=== PATIENT | female | born 1965 | race African-American/Black ===

== ENCOUNTER 2016-11-20 08:22 | Emergency (ER) | payer SELFPAY ==
--- NOTE | 2016-11-20 09:09 | ER Document Report ---
ED Extremity Problem, Upper - General Chief Complaint: Arm Pain Stated Complaint: LEFT ARM PAIN Time Seen by Provider: 11/20/16 08:59 Mode of Arrival: Ambulatory Information source: Patient Notes: 51-year-old female presents to ED for left elbow pain on Sunday and has continually gotten worse. She states she had the same thing happen about 6 years ago and she was supposed to follow-up with orthopedic but did not follow- up. TRAVEL OUTSIDE OF THE [place] IN LAST 30 DAYS: No - HPI Patient complains to provider of: Pain, Elbow Onset: Other - Sunday Recent injury: No Quality of pain: Achy, Cramping, Throbbing Pain Level: 3 Context: Other - no injury Associated symptoms: None Exacerbated by: Movement Relieved by: Rest Similar symptoms previously: Yes Recently seen / treated by doctor: No - Related Data Allergies/Adverse Reactions: aspirin [Aspirin] Allergy (Verified 11/20/16 08:25) ibuprofen [From Motrin] Allergy (Verified 11/20/16 08:25) Past Medical History - General Information source: Patient - Social History Smoking Status: Current Every Day Smoker Cigarette use (# per day): Yes - /3 ppd Chew tobacco use (# tins/day): No Smoking Education Provided: Yes Frequency of alcohol use: None Drug Abuse: None Lives with: Family Family History: Arthritis, CAD, CVA, DM, Malignancy Patient has suicidal ideation: No Patient has homicidal ideation: No - Past Medical History Cardiac Medical History: Reports: Hx Hypertension Denies: Hx Coronary Artery Disease Pulmonary Medical History: Reports: Hx Asthma EENT Medical History: Reports: None Neurological Medical History: Reports: None Endocrine Medical History: Reports: None Renal/ Medical History: Reports: None Malignancy Medical History: Reports: None GI Medical History: Reports: Hx Gastroesophageal Reflux Disease, Hx Colonoscopy , Hx Endoscopy Musculoskeltal Medical History: Reports Hx Musculoskeletal Trauma Skin Medical History: Reports None Psychiatric Medical History: Reports: None Traumatic Medical History: Reports: Hx Fractures - right arm Infectious Medical History: Reports: None Past Surgical History: Reports: Hx Dilation and Curettage, Hx Hysterectomy - Immunizations Immunizations up to date: Yes Hx Diphtheria, Pertussis, Tetanus Vaccination: Yes Review of Systems - Review of Systems Constitutional: No symptoms reported EENT: No symptoms reported Cardiovascular: No symptoms reported Respiratory: No symptoms reported Gastrointestinal: No symptoms reported Genitourinary: No symptoms reported Female Genitourinary: No symptoms reported Musculoskeletal: No symptoms reported Skin: No symptoms reported Hematologic/Lymphatic: No symptoms reported Neurological/Psychological: No symptoms reported -: Yes All other systems reviewed and negative Physical Exam - Vital signs Vitals: Temp Pulse Resp BP Pulse Ox 97.9 F 88 20 178/113 H 98 11/20/16 08:27 11/20/16 08:27 11/20/16 08:27 11/20/16 08:27 11/20/16 08:27 Interpretation: Normal - General General appearance: Appears well, Alert - HEENT Head: Normocephalic, Atraumatic Eyes: Normal Pupils: PERRL - Respiratory Respiratory status: No respiratory distress Chest status: Nontender Breath sounds: Normal Chest palpation: Normal - Cardiovascular Rhythm: Regular Heart sounds: Normal auscultation Murmur: No - Abdominal Inspection: Normal Distension: No distension Bowel sounds: Normal Tenderness: Nontender Organomegaly: No organomegaly - Back Back: Normal, Nontender - Extremities General upper extremity: Normal inspection, Normal color, Normal temperature General lower extremity: Normal inspection, Nontender, Normal color, Normal ROM , Normal temperature, Normal weight bearing. No: Delisa's sign Elbow: Tender, Limited ROM - due to pain can move but painful - Neurological Neuro grossly intact: Yes Cognition: Normal Orientation: AAOx4 Mercer Coma Scale Eye Opening: Spontaneous Ari Coma Scale Verbal: Oriented Ari Coma Scale Motor: Obeys Commands Ari Coma Scale Total: 15 Speech: Normal Motor strength normal: LUE, RUE, LLE, RLE Sensory: Normal - Psychological Associated symptoms: Normal affect, Normal mood - Skin Skin Temperature: Warm Skin Moisture: Dry Skin Color: Normal Course - Re-evaluation Re-evalutation: 11/20/16 10:41 Patient given a dispense pack of [place] and instructed to please follow-up with orthopedics for right elbow pain. She was also instructed to follow[facility] with [facility] for [facility] elevated blood pressure. - Vital Signs Vital signs: Temp Pulse Resp BP Pulse Ox 97.9 F 88 20 178/113 H 98 11/20/16 08:27 11/20/16 08:27 11/20/16 08:27 11/20/16 08:27 11/20/16 08:27 - Diagnostic Test Radiology reviewed: Image reviewed, Reports reviewed Discharge - Discharge Clinical Impression: Left elbow pain Condition: Stable Disposition: HOME, SELF-CARE Additional Instructions: You were seen today for left elbow pain since Sunday. He states he had a similar incident 6 years ago and did not follow up with the orthopedic. Please follow-up with the orthopedic so they can determine the cause of his pain. I will treat you with a [place] dispense back which will be 6 pills she could take 1 every 6 hours as needed for pain. Use heat. Please be sure to move her elbow do not hold still. Elevation & Warmth The area should be elevated as much as possible over the next 48 hours. Try to keep it above the level of your heart. Apply gentle heat (such as a heating pad or hot water bottle) for about 20 to 30 minutes about every two hours -- at least four times daily. Warmth and elevation will help you make a more rapid recovery, and will ease the pain considerably. Oral Narcotic Medication You have been given a pack of [place] for pain control. This medication is a narcotic. It's best taken with food, as nausea can result if taken on an empty stomach. Don't operate machinery or drive within six hours of taking this medication. Do not combine this medicine with alcohol, or with any medication which can cause sedation (such as cold tablets or sleeping pills) unless you get permission from the physician. Narcotics tend to cause constipation. If possible, drink plenty of fluids and eat a diet high in fiber and fruits. FOLLOW-UP CARE: If you have been referred to a physician for follow-up care, call the physician s office for an appointment as you were instructed or within the next two days. If you experience worsening or a significant change in your symptoms, notify the physician immediately or return to the Emergency Department at any time for re-evaluation. Forms: Smoking Cessation Education, Elevated Blood Pressure Referrals: EDUARDA AGUILERA DO [ACTIVE STAFF] - Follow up as needed [facility] [Provider Group] - Follow up as needed
--- NOTE | 2016-11-20 09:56 | RADIOLOGY REPORT (SQ) ---
EXAM DESCRIPTION: ELBOW LEFT OVER 2 VIEWS COMPLETED DATE/TIME: 11/20/2016 9:39 am REASON FOR STUDY: pain decreased rom COMPARISON: None. NUMBER OF VIEWS: Four views. TECHNIQUE: AP, lateral, and both oblique radiographic images acquired of the left elbow. LIMITATIONS: None. FINDINGS: MINERALIZATION: Normal. BONES: No acute fracture or dislocation. No worrisome bone lesions. JOINT: No effusion. SOFT TISSUES: No soft tissue swelling. No foreign body. OTHER: No other significant finding. IMPRESSION: NEGATIVE STUDY OF THE LEFT ELBOW. NO RADIOGRAPHIC EVIDENCE OF ACUTE INJURY. TECHNICAL DOCUMENTATION: JOB ID: [id number] [employer]- All Rights Reserved
[2016-11-20] MEDS ORDERED: HYDROCODONE/ACETAMINOPHEN 5-325 MG 6 TAB/DSPK PO PRN (10:29)
[2016-11-20 10:41] VITALS: BP 148/95
== END 2016-11-20 10:52 | disposition home or self-care (01) ==
LOC: ER 08:22
DX: M25.522 Pain in left elbow (principal); I10 Essential (primary) hypertension; J45.909 Unspecified asthma, uncomplicated; F17.210 Nicotine dependence, cigarettes, uncomplicated; Z71.6 Tobacco abuse counseling; Z88.6 Allergy status to analgesic agent
CPT/HCPCS: 99283

== ENCOUNTER 2016-12-23 04:15 | Emergency (ER) | payer SELFPAY ==
[2016-12-23 04:30] VITALS: BP 153/114
--- NOTE | 2016-12-23 04:47 | ER Document Report ---
ED General - General Chief Complaint: Finger Injury Stated Complaint: CAP STUCK ON FINGER Time Seen by Provider: 12/23/16 04:35 Notes: Patient is a 51-year-old female presents with complaint of pain over the left fifth finger. Patient says that she had a bug bite in her finger. She tried to dependent alcohol. There is a hole in the That she did her finger through and then the Got stuck on the base of her finger. She has been unable to remove the finger. She is tried applying chicken grease to the finger. She still is unable to slide it off and therefore came to the ER. No other complaints at this time. TRAVEL OUTSIDE OF THE [place] IN LAST 30 DAYS: No - Related Data Allergies/Adverse Reactions: aspirin [Aspirin] Allergy (Verified 11/20/16 08:25) ibuprofen [From Motrin] Allergy (Verified 11/20/16 08:25) Past Medical History - Social History Smoking Status: Never Smoker Frequency of alcohol use: None Drug Abuse: None Family History: Arthritis, CAD, CVA, DM, Malignancy Patient has suicidal ideation: No Patient has homicidal ideation: No - Past Medical History Cardiac Medical History: Reports: Hx Hypertension Denies: Hx Coronary Artery Disease Pulmonary Medical History: Reports: Hx Asthma Endocrine Medical History: Denies: Hx Diabetes Mellitus Type 1, Hx Diabetes Mellitus Type 2 Renal/ Medical History: Denies: Hx Peritoneal Dialysis GI Medical History: Reports: Hx Gastroesophageal Reflux Disease, Hx Colonoscopy , Hx Endoscopy Musculoskeltal Medical History: Reports Hx Musculoskeletal Trauma Traumatic Medical History: Reports: Hx Fractures - right arm Past Surgical History: Reports: Hx Dilation and Curettage, Hx Gynecologic Surgery - multi D n Cs, Hx Hysterectomy - Immunizations Immunizations up to date: Yes Hx Diphtheria, Pertussis, Tetanus Vaccination: Yes Review of Systems - Review of Systems Notes: My Normal Review Basic REVIEW OF SYSTEMS: CONSTITUTIONAL : Denies fever, chills, or sweats. Denies recent illness. MUSCULOSKELETAL: Denies neck or back pain or joint pain or swelling. SKIN: Denies rash or skin lesions. NEUROLOGICAL: Denies sensory or motor loss. ALL OTHER SYSTEMS REVIEWED AND NEGATIVE. Physical Exam - Vital signs Vitals: Temp Pulse Resp BP Pulse Ox 97.5 F 77 18 153/114 H 98 12/23/16 04:26 12/23/16 04:26 12/23/16 04:26 12/23/16 04:12/23/16 04:26 - Notes Notes: General Appearance: Well nourished, alert, cooperative, no acute distress, mild obvious discomfort. Vitals: reviewed, See vital signs table. Extremities: strength 5/5 in all extremities, good pulses in all extremities, patient has a plastic cap that is stuck on the base of the left fifth digit. She still is good capillary refill. Does not appear to be any restriction to blood flow. She is good distal sensation., no edema. Skin: warm, dry, appropriate color, no rash Neuro: speech clear, oriented x 3, normal affect, responds appropriately to questions. Course - Re-evaluation Re-evalutation: 12/23/16 04:47 I was able to cut through the Using trauma barak. This caused a Crack and then I was able to break apart and remove it off the patient's finger. There is no complications. Patient has good capillary refill and good distal sensation as well as good flexion-extension of the finger after the Is removed. Patient will be discharged home. Patient encouraged to return to ER if she develops any redness or swelling of the finger. Dictation of this chart was performed using voice recognition software; therefore, there may be some unintended grammatical errors. - Vital Signs Vital signs: Temp Pulse Resp BP Pulse Ox 97.5 F 77 18 153/114 H 98 12/23/16 04:26 12/23/16 04:26 12/23/16 04:26 12/23/16 04:12/23/16 04:26 Discharge - Discharge Clinical Impression: Plastic ring stuck on finger Condition: Good Disposition: HOME, SELF-CARE Additional Instructions: Please return to the ER if you develop any redness or swelling to your finger.
== END 2016-12-23 05:00 | disposition home or self-care (01) ==
LOC: ER 04:15
DX: S60.447A External constriction of left little finger, initial encounter (principal); W49.04XA Ring or other jewelry causing external constriction, initial encounter; I10 Essential (primary) hypertension; J45.909 Unspecified asthma, uncomplicated; Z88.6 Allergy status to analgesic agent
CPT/HCPCS: 99283

== ENCOUNTER 2017-07-31 12:06 | Observation (INO) | payer SELFPAY ==
--- NOTE | 2017-07-31 13:02 | ER Document Report ---
ED Medical Screen (RME) - General Chief Complaint: High Blood Pressure Stated Complaint: BLOOD PRESSURE PROBLEM Time Seen by Provider: 07/31/17 12:50 Mode of Arrival: Ambulatory Information source: Patient Notes: Patient is a 52-year-old female presenting to the emergency department complaining of high blood pressure with associated symptoms of chest discomfort , general malaise and fatigue. Patient states that she has been feeling "not right" and "not like myself" the last couple of days and decided to take her blood pressure this morning when she started having some chest discomfort. Patient states that her blood pressure this morning was 194/135 when it normally runs 120/80. Patient states that she did take her blood pressure medication of Benicar this morning. TRAVEL OUTSIDE OF THE [place] IN LAST 30 DAYS: No - Related Data Allergies/Adverse Reactions: aspirin [Aspirin] Allergy (Verified 07/31/17 12:15) ibuprofen [From Motrin] Allergy (Verified 07/31/17 12:15) Past Medical History - General Information source: Patient - Social History Chew tobacco use (# tins/day): No Frequency of alcohol use: None Drug Abuse: None Family history: Reviewed & Not Pertinent Pulmonary Medical History: Reports: Hx Asthma GI Medical History: Reports: Hx Gastroesophageal Reflux Disease, Hx Colonoscopy , Hx Endoscopy Musculoskeltal Medical History: Reports Hx Musculoskeletal Trauma Traumatic Medical History: Reports: Hx Fractures - right arm Past Surgical History: Reports: Hx Dilation and Curettage, Hx Gynecologic Surgery - multi D n Cs, Hx Hysterectomy - Immunizations Immunizations up to date: Yes Hx Diphtheria, Pertussis, Tetanus Vaccination: Yes Physical Exam - Vital signs Vitals: Temp Pulse Resp BP Pulse Ox 98.7 F 85 16 187/110 H 96 07/31/17 12:43 07/31/17 12:43 07/31/17 12:43 07/31/17 12:43 07/31/17 12:43 - Notes Notes: GENERAL: Alert, interacts well. No acute distress. HEAD: Normocephalic, Atraumatic. NECK: Full range of motion. Supple. Trachea midline. LUNGS: Clear to auscultation bilaterally, no wheezes, rales, or rhonchi. No respiratory distress. HEART: Regular rate and rhythm. No murmurs, gallops, or rubs. EXTREMITIES: Moves all four extremites spontaneously. Course - Vital Signs Vital signs: Temp Pulse Resp BP Pulse Ox 98.7 F 85 16 187/110 H 96 07/31/17 12:43 07/31/17 12:43 07/31/17 12:43 07/31/17 12:43 07/31/17 12:43 - Laboratory Result Diagrams: 07/31/17 13:20 07/31/17 13:20 Laboratory results interpreted by me: 07/31/17 13:20 RDW 14.5 H Scribe Documentation - Scribe Written by Stevenson:: Stevenson Bourne, 07/31/2017 13:02 acting as scribe for :: Darius
[2017-07-31 13:34] LABS: ABSOLUTE LYMPHOCYTES (AUTO) 1.6 10^3/uL (0.5-4.7); ABSOLUTE MONOCYTES (AUTO) 0.4 10^3/uL (0.1-1.4); ABSOLUTE NEUT (AUTO) 2.7 10^3/uL (1.7-8.2); BASOPHILS % (AUTO) 0.7 % (0-2); EOSINOPHILS % (AUTO) 0.9 % (0-6); HEMATOCRIT 40.9 % (36.0-47.0); HEMOGLOBIN 14.4 g/dL (12.0-15.5); LYMPHOCYTES % (AUTO) 34.3 % (13-45); MEAN CORPUSCULAR HGB CONC 35.3 g/dL (32.0-36.0); MEAN CORPUSCULAR VOLUME 93 fl (80-97); MONOCYTES % (AUTO) 7.5 % (3-13); PLATELET COUNT 262 10^3/uL (150-450); RED BLOOD COUNT 4.38 10^6/uL (3.72-5.28); RED CELL DISTRIBUTION WIDTH 14.5 % (11.5-14.0); SEGMENTED NEUTROPHILS % (AUTO) 56.6 % (42-78); TOTAL CELLS COUNTED % (AUTO) 100 %; WHITE BLOOD COUNT 4.8 10^3/uL (4.0-10.5)
--- NOTE | 2017-07-31 13:37 | RADIOLOGY REPORT (SQ) ---
EXAM DESCRIPTION: CHEST SINGLE VIEW COMPLETED DATE/TIME: 07/31/2017 1:29 pm REASON FOR STUDY: Chest tightness COMPARISON: 08/26/2009 EXAM PARAMETERS: NUMBER OF VIEWS: One view. TECHNIQUE: Single frontal radiographic view of the chest acquired. RADIATION DOSE: NA LIMITATIONS: None. FINDINGS: LUNGS AND PLEURA: No opacities, masses or pneumothorax. No pleural effusion. MEDIASTINUM AND HILAR STRUCTURES: No masses. Contour normal. HEART AND VASCULAR STRUCTURES: Heart normal in size. Normal vasculature. BONES: No acute findings. HARDWARE: None in the chest. OTHER: No other significant finding. IMPRESSION: NO ACUTE RADIOGRAPHIC FINDING IN THE CHEST. TECHNICAL DOCUMENTATION: JOB ID: [id number] [employer]- All Rights Reserved
[2017-07-31 13:52] LABS: ALANINE AMINOTRANSFERASE 15 U/L (9-52); ALBUMIN 4.7 g/dL (3.5-5.0); ALKALINE PHOSPHATASE 56 U/L (38-126); ANION GAP 12 (5-19); ASPARTATE AMINO TRANSFERASE 15 U/L (14-36); BILIRUBIN,DIRECT 0.4 mg/dL (0.0-0.4); BILIRUBIN,TOTAL 0.4 mg/dL (0.2-1.3); BLOOD UREA NITROGEN 8 mg/dL (7-20); CALCIUM 9.8 mg/dL (8.4-10.2); CARBON DIOXIDE 25 mmol/L (22-30); CHLORIDE 106 mmol/L (98-107); GLUCOSE 90 mg/dL (75-110); POTASSIUM 3.8 mmol/L (3.6-5.0); SODIUM 143.4 mmol/L (137-145); TOTAL PROTEIN 8.1 g/dL (6.3-8.2)
[2017-07-31] MEDS ORDERED: NITROGLYCERIN 2% OINTMENT 1 GM PACKET TP ONE (15:13)
--- NOTE | 2017-07-31 15:46 | ER Document Report ---
ED General - General Chief Complaint: High Blood Pressure Stated Complaint: BLOOD PRESSURE PROBLEM Time Seen by Provider: 07/31/17 12:50 Mode of Arrival: Ambulatory Notes: 52-year-old lady with hypertension on amlodipine presents with chest tightness" for lengthening basket adequate in her chest for 2 days in the context of feeling terrible. She had a blood pressure check today and it was in the 194 systolic range. No shortness of breath nausea or vomiting. Distant stress test greater than 10 years ago. Claims med compliance. TRAVEL OUTSIDE OF THE [place] IN LAST 30 DAYS: No - Related Data Allergies/Adverse Reactions: aspirin [Aspirin] Allergy (Verified 07/31/17 12:15) ibuprofen [From Motrin] Allergy (Verified 07/31/17 12:15) Past Medical History - General Information source: Patient - Social History Smoking Status: Current Every Day Smoker Chew tobacco use (# tins/day): No Frequency of alcohol use: None Drug Abuse: None Family History: Arthritis, CAD, CVA, DM, Malignancy Patient has suicidal ideation: No Patient has homicidal ideation: No - Past Medical History Cardiac Medical History: Reports: Hx Hypertension Denies: Hx Coronary Artery Disease Pulmonary Medical History: Reports: Hx Asthma Endocrine Medical History: Denies: Hx Diabetes Mellitus Type 1, Hx Diabetes Mellitus Type 2 Renal/ Medical History: Denies: Hx Peritoneal Dialysis GI Medical History: Reports: Hx Gastroesophageal Reflux Disease, Hx Colonoscopy , Hx Endoscopy Musculoskeltal Medical History: Reports Hx Musculoskeletal Trauma Traumatic Medical History: Reports: Hx Fractures - right arm Past Surgical History: Reports: Hx Dilation and Curettage, Hx Gynecologic Surgery - multi D n Cs, Hx Hysterectomy - Immunizations Immunizations up to date: Yes Hx Diphtheria, Pertussis, Tetanus Vaccination: Yes Review of Systems - Review of Systems Notes: REVIEW OF SYSTEMS GEN: Denies fever, chills, weight loss ENT: Denies sore throat, nasal discharge, ear pain EYES: Denies blurry vision, eye pain, discharge CV: Pressure RESP: Denies cough, shortness of breath, wheezing GI: Denies abdominal pain, nausea, vomiting, diarrhea MSK: Denies joint pain/swelling, edema, SKIN: Denies rash, skin lesions LYMPH: Denies swollen glands/lymph nodes NEURO: Denies headache, focal weakness or numbness, dizziness PSYCH: Denies depression, suicidal or homicidal ideation PHYSICAL EXAMINATION General: No acute distress, well-nourished Head: Atraumatic, normocephalic ENT: Mouth normal, oropharynx moist, no exudates or tonsillar enlargement Eyes: Conjunctiva normal, pupils equal, lids normal Neck: No JVD, supple, no guarding CVS: Normal rate, regular rhythm, no murmurs Resp: No resp distress, equal and normal breath sounds bilaterally GI: Nondistended, soft, no tenderness to palpation, no rebound or guarding Ext: No deformities, no edema, normal range of motion in upper and lower ext Back: No CVA or midline TTP Skin: No rash, warm Lymphatic: No lymphadeopathy noted Neuro: Awake, alert. Face symmetric. GCS 15. Physical Exam - Vital signs Vitals: Temp Pulse Resp BP Pulse Ox 98.7 F 85 16 187/110 H 96 07/31/17 12:43 07/31/17 12:43 07/31/17 12:43 07/31/17 12:43 07/31/17 12:43 Course - Re-evaluation Re-evalutation: 07/31/17 15:33 Patient presents with acute hypertension and chest pain for 2 days in the setting of a changed EKG. She looks well but is significantly hypertensive and needs it to be lowered as I believe she is having some demand ischemia. Her first troponin is negative. She has a severe aspirin allergy. We will give Nitropaste to reduce blood pressure. Will repeat EKG and troponin Spoke with Dr. Haley hospitalist to accept the patient 07/31/17 16:21 Reassessed after Nitropaste. Her pressure is 210 and she is quite angry about being admitted but I did explain her why this is necessary. Nursing was unable to obtain an IV. We will get another nurse to try. Ordered hydralazine 10 mg' s. 07/31/17 17:29 Reassessed. Blood pressure has decreased. Repeat troponin pending. Hospitalist is caring for the patient at this point. - Vital Signs Vital signs: Temp Pulse Resp BP Pulse Ox 98.7 F 85 27 H 199/107 H 97 07/31/17 12:43 07/31/17 12:43 07/31/17 16:43 07/31/17 16:43 07/31/17 16:43 - Laboratory Result Diagrams: 07/31/17 13:20 07/31/17 13:20 Laboratory results interpreted by me: 07/31/17 13:20 RDW 14.5 H - EKG Interpretation by Me EKG shows normal: Sinus rhythm Rate: Normal Rhythm: NSR When compared to previous EKG there are: Changes noted - Upright T waves now in the lateral precordium where they were inverted prior Critical Care Note - Critical Care Note Total time excluding time spent on procedures (mins): 31 Comments: The above patient is critically ill. Not including procedures, but including direct re-evaluations, speaking with patient and/or consultants, interpreting results, and documenting, I spent the total amount of minute listed listed above on critical care time Discharge - Discharge Clinical Impression: Hypertensive emergency Condition: Fair Disposition: ADMITTED OBSERVATION Admitting Provider: Hospitalist Unit Admitted: Telemetry
[2017-07-31] MEDS ORDERED: HYDRALAZINE HCL INJ/PF 20 MG/1 ML SDV IV ONE (16:20)
[2017-07-31] MEDS ORDERED: LABETALOL HCL INJ 20 MG/4 ML DISP.SYRIN IV PRN (17:24)
--- NOTE | 2017-07-31 17:28 | PDOC H&P ---
History of Present Illness Admission Date/PCP: 07/31/17 15:53 GAVINO CHRISTENSEN DO Patient complains of: chest tightness, lethargy History of Present Illness: LISA CARPENTER is a 52 year old female with history of HTN on Norvasc, chronic hip pain, and pernicious anemia, who presents to ED with poorly controlled BP. Patient states that until 9 months ago, she had not seen a PCP for "many years" . She was started on norvasc at that time with improvement in her BPs. States that around 1 month ago she had a upper respiratory infection, however has been feeling well otherwise. Over the past 2-3 days, she has had generalized lethargy , headache, and sensation of "floating". She admits to occasional chest tightness but not overt chest pain, diaphoresis, or palpitations. No sick contacts. Denies fevers, chills, abdominal pain, NVD. Has been compliant with home medications. Denies recent stress. She does admit to smoking and has strong family history of both CAD and hypertension. She had a stress test >5 years ago. Unclear of results. Admitted to hospitalist service for further management. Past Medical History Cardiac Medical History: Reports: Hypertension Denies: Coronary Artery Disease Pulmonary Medical History: Reports: Chronic Obstructive Pulmonary Disease (COPD) Endocrine Medical History: Denies: Diabetes Mellitus Type 1, Diabetes Mellitus Type 2 GI Medical History: Reports: Gastroesophageal Reflux Disease Past Surgical History Past Surgical History: Reports: Hysterectomy Social History Information Source: Patient Smoking Status: Current Every Day Smoker Frequency of Alcohol Use: None Hx Recreational Drug Use: No Hx Prescription Drug Abuse: No Family History Family History: Arthritis, CAD, CVA, DM, Malignancy Parental Family History Reviewed: Yes - Father with HTN, CAD; mother with HTN Children Family History Reviewed: Yes - 14 year old healthy daughter Sibling(s) Family History Reviewed.: Yes - History of HTN Medication/Allergy Allergies/Adverse Reactions: aspirin [Aspirin] Allergy (Verified 07/31/17 12:15) ibuprofen [From Motrin] Allergy (Verified 07/31/17 12:15) Review of Systems All systems: reviewed and no additional remarkable complaints except as stated Physical Exam Vital Signs: Temp Pulse Resp BP Pulse Ox 98.7 F 85 27 H 199/107 H 97 07/31/17 12:43 07/31/17 12:43 07/31/17 16:43 02/20/18 16:43 07/31/17 16:43 General appearance: PRESENT: no acute distress, obese, well-developed, well- nourished Head exam: PRESENT: normocephalic Eye exam: PRESENT: EOMI, PERRLA Mouth exam: PRESENT: moist Neck exam: PRESENT: full ROM. ABSENT: JVD Respiratory exam: PRESENT: prolonged expiratory phas, symmetrical, unlabored Cardiovascular exam: PRESENT: RRR, +S1, +S2. ABSENT: systolic murmur GI/Abdominal exam: PRESENT: soft. ABSENT: distended, tenderness Musculoskeletal exam: PRESENT: full ROM Neurological exam: PRESENT: alert, awake, oriented to person, oriented to place , oriented to time, oriented to situation, CN II-XII grossly intact Psychiatric exam: PRESENT: normal mood Skin exam: PRESENT: dry, warm Results Laboratory Results: Labs- All tests 24 hr 07/31/17 07/31/17 07/31/17 13:20 13:20 13:20 WBC 4.8 RBC 4.38 Hgb 14.4 Hct 40.9 MCV 93 MCH 33.0 MCHC 35.3 RDW 14.5 H Plt Count 262 Seg Neutrophils % 56.6 Lymphocytes % 34.3 Monocytes % 7.5 Eosinophils % 0.9 Basophils % 0.7 Absolute Neutrophils 2.7 Absolute Lymphocytes 1.6 Absolute Monocytes 0.4 Absolute Eosinophils 0.0 Absolute Basophils 0.0 Sodium 143.4 Potassium 3.8 Chloride 106 Carbon Dioxide 25 Anion Gap 12 BUN 8 Creatinine 0.90 Est GFR ( Amer) > 60 Est GFR (Non-Af Amer) > 60 Glucose 90 Calcium 9.8 Magnesium 2.0 Total Bilirubin 0.4 Direct Bilirubin 0.4 Neonat Total Bilirubin Not Reportable Neonat Direct Bilirubin Not Reportable Neonat Indirect Bili Not Reportable AST 15 ALT 15 Alkaline Phosphatase 56 Troponin I < 0.012 Total Protein 8.1 Albumin 4.7 EKG Comments: Reviewed Impressions: Chest X-Ray 07/31/17 12:51 IMPRESSION: NO ACUTE RADIOGRAPHIC FINDING IN THE CHEST. Assessment & Plan - Diagnosis (1) Hypertensive urgency Is this a current diagnosis for this admission?: Yes Plan: On Norvasc at home, Now with SBP >190s sustained. No clear precipitating factor. Patient is , current smoker, obese, and has a strong family of HTN and CAD - Labs unremarkable, EKG with new lateral t-wave inversions - Has received Nitro patch and Hydralazine 10mg IV in ED with only marginal improvement - Will repeat trop and EKG - Ordered Labetolol 20mg IV q4 hours PRN - Pharmacologic stress test ordered for AM - Cardiology consulted, appreciate recommendations - Once BP's improve, will transition to oral regimen, Continue with IV better control - Continue monitoring on tele, repeat AM labs (2) Family history of heart disease Is this a current diagnosis for this admission?: Yes Plan: Strong family history of CAD and HTN in family - Will obtain HgA1c and lipid profile in AM to better risk stratify - Remainder of work up per above (3) Chronic pain Qualifiers: Chronic pain type: other chronic pain Qualified Code(s): G89.29 - Other chronic pain Is this a current diagnosis for this admission?: Yes Plan: Continue home Percocet - Time Time Spent: 30 to 50 Minutes Anticipated discharge: Home Within: within 24 hours
[2017-07-31] MEDS ORDERED: ENALAPRILAT DIHYDRATE INJ/PF 2.5 MG/2 ML SDV IV PRN (17:31)
[2017-07-31] MEDS ORDERED: ENOXAPARIN SODIUM INJ 40 MG/0.4 ML DISP.SYRIN SUBCUT ONE (18:00)
[2017-07-31] MEDS: OXYCODONE-ACETAMINOPHEN 5-325 MG TABLET PO PRN (18:41)
--- NOTE | 2017-07-31 18:46 | EKG REPORT ---
SEVERITY:- BORDERLINE ECG - SINUS RHYTHM PROBABLE LEFT ATRIAL ABNORMALITY NONSPECIFIC ST-T CHANGES- INFERIOR LEADS : Confirmed by: Benjamin Hauser MD 31-Jul-2017 18:45:29
--- NOTE | 2017-07-31 19:45 | PDOC CONSULTATION ---
Consultation Consult Date: 07/31/17 Attending physician:: MARTIN DOLAN Consult reason:: Hypertensive urgency History of Present Illness Admission Date/PCP: 07/31/17 15:53 GAVINO CHRISTENSEN DO Patient complains of: Fatigue and tiredness History of Present Illness: LISA CARPENTER is a 52 year old female with history of HTN on Norvasc, chronic hip pain, and pernicious anemia, who presents to ED with poorly controlled BP. Patient states that until 9 months ago, she had not seen a PCP for "many years" . She was started on norvasc at that time with improvement in her BPs. States that around 1 month ago she had a upper respiratory infection, however has been feeling well otherwise. Over the past 2-3 days, she has had generalized lethargy , headache, and sensation of "floating". She admits to occasional chest tightness but not overt chest pain, diaphoresis, or palpitations. No sick contacts. Denies fevers, chills, abdominal pain, NVD. Has been compliant with home medications. Denies recent stress. She does admit to smoking and has strong family history of both CAD and hypertension. She had a stress test >5 years ago. Unclear of results. Admitted to hospitalist service for further management. Patient is a vague historian. This history was reviewed and confirmed. Patient did complain of feeling very fatigued and tired. She has also noted shortness of breath on mild exertion. She is not able to exert much. Past Medical History Cardiac Medical History: Reports: Hypertension Denies: Coronary Artery Disease Pulmonary Medical History: Reports: Asthma, Chronic Obstructive Pulmonary Disease (COPD) Endocrine Medical History: Denies: Diabetes Mellitus Type 1, Diabetes Mellitus Type 2 GI Medical History: Reports: Gastroesophageal Reflux Disease Past Surgical History Past Surgical History: Reports: Hysterectomy Social History Information Source: Patient Smoking Status: Current Every Day Smoker Frequency of Alcohol Use: Occasional Hx Recreational Drug Use: No Hx Prescription Drug Abuse: No - Advance Directive Resuscitation Status: Full Code Surrogate healthcare decision maker:: Patient's mother is the surrogate decision-maker Family History Family History: Arthritis, CAD, CVA, DM, Malignancy Parental Family History Reviewed: Yes Children Family History Reviewed: Yes Sibling(s) Family History Reviewed.: Yes Medication/Allergy Home Medications: Albuterol Sulfate [Proair HFA] 1 - 2 puff IH Q4 PRN #1 inhaler 08/02/17 Amlodipine Besylate [Norvasc 5 mg Tablet] 5 mg PO DAILY #30 tablet 08/02/17 Aspirin [Aspirin 81 mg Chewable Tablet] 81 mg PO DAILY #30 tab.chew 08/02/17 Atorvastatin Calcium [Lipitor 10 mg Tablet] 10 mg PO QHS #30 tablet 08/02/17 Losartan Potassium [Cozaar] 100 mg PO DAILY #30 tablet 08/02/17 Metoprolol Succinate [Toprol Xl 25 mg Tab.sr] 25 mg PO DAILY #30 tab.sr.24h Allergies/Adverse Reactions: aspirin [Aspirin] Allergy (Verified 07/31/17 12:15) ibuprofen [From Motrin] Allergy (Verified 07/31/17 12:15) Review of Systems Review of Systems: Please see history of present illness and past medical history as wall. Constitutional: No fever or chills reported. Fatigue and tiredness reported. Head : No recent chronic headaches, recent head injury. Eyes: No recent eye pain, diplopia, redness, discharge, acute visual changes. Ears: No recent chronic ear pain, acute hearing loss, ear discharge. Oral cavity: No recent ulcerations, bleeding, oral cavity discomfort. Neck: No recent acute neck pain reported. Hematologic: No recent easy bruising or bleeding or hematologic malignancy reported. Lymphatic: No recent lymphatic malignancy, chronic lymphadenopathy reported yet Cardiovascular system review: See history of present illness. No history of sustained palpitations, syncope or near syncope Respiratory system review: No recent chronic cough, hemoptysis, blood clots in the lungs reported. shortness of breath on exertion Gastrointestinal system review: Negative for any recent acute or chronic abdominal pain, hematemesis, melena, recent change in bowel habits. Genitourinary system review: No recent acute or chronic hematuria, flank pain, UTI etc. reported. Skin system review: Negative for any recent abnormal bruising, no rash, no pruritus reported. Neurologic: No prior history of strokes, mini strokes, seizure disorder. Psychologic: No history of major psychosis or major depression reported. Musculoskeletal: Minor aches and pains reported. No acute joint swelling reported. Endocrine: No recent polyuria, polydipsia, recent heat or cold intolerance. Physical Exam Vital Signs: Temp Pulse Resp BP Pulse Ox 98.7 F 85 13 156/102 H 97 07/31/17 12:43 07/31/17 12:43 07/31/17 19:06 07/31/17 19:06 07/31/17 19:06 Exam: GENERAL: well-nourished and in no acute distress. Alert and oriented x3 HEAD: Atraumatic, normocephalic. EYES: Pupils equal round and reactive to light, extraocular movements intact, sclera anicteric, conjunctiva are normal. ENT: TMs normal, nares patent, oropharynx clear without exudates. Moist mucous membranes. No oral ulcerations or bleeding gums noted NECK: supple without lymphadenopathy. Trachea is central. No cervical or axillary lymphadenopathy noted. Carotids are 2+, JVD WNL LUNGS: Respiration seems nonlabored, no significant accessory muscle action noted. Breath sounds clear to auscultation bilaterally and equal noted. No wheezes rales or rhonchi noted. No significant dullness noted on percussion. CHEST: Palpation of the chest wall shows no significant chest wall tenderness. No other significant abnormalities noted. HEART: [place] LAYER, No PSH, 1/6 AARON aortic area, 1/6 reyes systolic murmur mitral area, no rubs, no gallops. ABDOMEN: Soft, no significant tenderness appreciated, normoactive bowel sounds. No guarding, no rebound. No rigidity noted . No masses appreciated. EXTREMITIES: Pedal pulses are 1-2+, no calf tenderness noted. No clubbing or cyanosis.trace to 1+ pedal edema noted NEUROLOGICAL: Focused neurological exam showed no significant neurologic deficit. Normal speech, no focal weakness appreciated. PSYCH: Normal mood, normal affect. Judgment and insight within normal limits. SKIN: No significant ecchymosis, rash, ulcerations or signs of pruritus noted. MUSCULOSKELETAL EXAM: No significant joint swelling noted. Results Laboratory Results: 07/31/17 17:23 Troponin I < 0.012 EKG Comments: Sinus rhythm with minor nonspecific ST-T changes noted Impressions: Chest X-Ray 07/31/17 12:51 IMPRESSION: NO ACUTE RADIOGRAPHIC FINDING IN THE CHEST. Assessment & Plan - Diagnosis (1) Chest tightness Is this a current diagnosis for this admission?: Yes (2) Hypertensive urgency Is this a current diagnosis for this admission?: Yes (3) Obesity Qualifiers: Obesity type: unspecified obesity type Serious obesity comorbidity presence : unspecified whether serious comorbidity present Body mass index: unspecified BMI Is this a current diagnosis for this admission?: Yes - Notes Notes: Chest pain: Patient has some typical and atypical features of chest pain. Cardiac enzymes so far has been negative. Electrocardiogram did not show any definitive ST segment changes. Multiple differential diagnoses exist in this patient. In descending order of probability this includes underlying coronary artery disease, gastroesophageal reflux, musculoskeletal pain, referred pain from elsewhere, anxiety panic disorder etc.Patient has significant cardiac risk factors, which indicates that there is a intermediate probability of chest discomfort coming from underlying CAD. Feel that it would need to be evaluated further. Discussed evaluation to assess this. In this regard risk benefits of nuclear stress test and other alternative processes were discussed in detail. The patient prefers to undergo nuclear stress test. The small risk of radiation , myocardial infarction, , cardiac arrhythmias, respiratory distress etc. were discussed. Patient understood the risks and gave informed consent. Nuclear stress test was therefore scheduled. For risk evaluation, patient is also being scheduled for a 2-D echocardiogram. Patient questions were answered. Hypertension: Blood pressure goal in this patient is 140/90 or less. This was discussed with the patient. Currently blood pressure under reasonable control. Better medication for this patient are ANDERSON inhibitor/ARB/beta giselle etc. discussed side effects of uncontrolled hypertension and also severe hypotension. Obesity: Discussed adverse effect of overweight/obesity on cardiovascular event rate, sleep apnea, diabetes and hypertension et cetera. Patient has been recommended weight loss. Patient advised in weight loss. In this regard portion control, substitution, calorie restriction and regular exercise plan discussed. Patient informed that I would be happy to help for outpatient management of weight loss. Risk associated with being overweight and obesity discussed. This included both mechanical and metabolic complications. - Time Time Spent: 30 to 50 Minutes - CODE STATUS was discussed, patient remains full code. Surrogate decision-maker unchanged. Multiple medical problems were addressed. More than 50% of the time spent coordinating care, discussing management plans with involved caregivers. Management plans discussed with involved personnels. Medical decision making was of moderate to high complexity , patient's has multiple comorbidities. Medications reviewed and adjusted accordingly: Yes
[2017-08-01] MEDS: OXYCODONE-ACETAMINOPHEN 5-325 MG TABLET PO PRN ×2 (01:39→09:51)
[2017-08-01 07:21] LABS: HEMATOCRIT 39.9 % (36.0-47.0); HEMOGLOBIN 13.8 g/dL (12.0-15.5); MEAN CORPUSCULAR HEMOGLOBIN 32.3 pg (27.0-33.4); MEAN CORPUSCULAR HGB CONC 34.6 g/dL (32.0-36.0); MEAN CORPUSCULAR VOLUME 94 fl (80-97); PLATELET COUNT 230 10^3/uL (150-450); RED BLOOD COUNT 4.27 10^6/uL (3.72-5.28); RED CELL DISTRIBUTION WIDTH 14.8 % (11.5-14.0); WHITE BLOOD COUNT 4.4 10^3/uL (4.0-10.5)
[2017-08-01 07:33] LABS: ANION GAP 13 (5-19); BLOOD UREA NITROGEN 10 mg/dL (7-20); CALCIUM 9.7 mg/dL (8.4-10.2); CARBON DIOXIDE 22 mmol/L (22-30); CHLORIDE 108 mmol/L (98-107); CHOLESTEROL 199.47 mg/dL (0-200); GLUCOSE 84 mg/dL (75-110); POTASSIUM 3.7 mmol/L (3.6-5.0); SODIUM 143.4 mmol/L (137-145); TRIGLYCERIDES 117 mg/dL (<150)
[2017-08-01 08:10] LABS: DIRECT LDL 118 mg/dL (<100)
[2017-08-01] MEDS ORDERED: LOSARTAN POTASSIUM 25 MG TABLET PO ONE (09:00)
[2017-08-01] MEDS ORDERED: AMLODIPINE BESYLATE 5 MG TABLET PO ONE (09:00)
[2017-08-01] MEDS: ENOXAPARIN SODIUM INJ 40 MG/0.4 ML DISP.SYRIN SUBCUT SCH (09:50)
[2017-08-01] MEDS ORDERED: ATORVASTATIN CALCIUM 20 MG TABLET PO SCH (10:15)
[2017-08-01] MEDS ORDERED: ATORVASTATIN CALCIUM 10 MG TABLET PO ONE (11:30)
--- NOTE | 2017-08-01 13:01 | DRAGON STRESS TEST REPORT ---
INTRAVENOUS LEXISCAN CARDIOLITE STRESS TEST USING SINGLE PHOTON EMMISION COMPUTERIZED TOMOGRAPHIC. DATE OF PROCEDURE: August 01, 2017, INDICATION : Chest pain CARDIAC RISK FACTORS: Hypertension RESTING EKG: Sinus rhythm without any baseline ST-T wave changes STRESS EKG: No significant changes noted with LexiScan bolus REASON FOR TERMINATION: Protocol. PROCEDURE REPORT: Baseline heart rate 68 beats per minute with blood pressure of 137/88. Patient had no significant complaints. Heart rate at 2 minutes post bolus 94 with a blood pressure of 142/83. 3 minutes post bolus heart rate 70 with blood pressure of 128/83. No significant EKG changes were noted. Patient had no significant complaints during the procedure or postprocedure. Patient injected with Aminophyllin 75 mg at 3 minutes or later after Lexiscan bolus. CONCLUSIONS: Normal EKG and hemodynamic response to IV LexiScan. NUCLEAR DATA: At rest the patient was given 14.70 millicuries of technetium 99 sestamibi injected intravenously. As per protocol rest gated SPECT images were obtained. On day of stress test, the patient was given intravenous LexiScan at a dose of 0.4 mg in 5 mL intravenously, followed by flush with normal saline. Subsequently the stress dose of 44.3 millicuries of technetium 99 sestamibi was injected intravenously. As per protocol stress gated images were obtained. NUCLEAR INTERPRETATION: Both raw and processed data were used for interpretation. Visual, qualitative, computer-generated quantitative data was used. There was good myocardial uptake of technetium compound. Motion artifact and soft tissue attenuations were noted. Increased visceral uptake was noted. No definitive areas of transient perfusion defect noted, No definitive areas of fixed perfusion defect or scars noted. EKG gated imaging showed LV EF at 61 %, rest and stress gated EF similar visually. T. I D. ratio was 1.05. Lung heart ratio noted to be within normal limits 0.28. No significant extracardiac and abnormal radiotracer activities were noted. RV free wall uptake was noted to be WNL. IMPRESSION: Also refer to comments under nuclear interpretation. Also test results needs to be interpreted in the context of pretest probability. 1. No definitive areas of transient perfusion defect noted. 2. There is no definitive scintigraphic evidence of myocardial infarction/scar. 3. EKG gated imaging shows left ventricular ejection fraction of approx. 61 %. 4. Clinical correlation requested as occasionally single vessel disease or balanced ischemia could be missed. In approximately 10% of the cases Lexiscan may not cause adequate vasodilatory stress. RECOMMENDATIONS: Aggressive risk factor modification and medical management. Further evaluation may be needed if continued symptoms or other high risk indicators are noted on clinical evaluation. Close cardiology follow-up is also recommended. Clinical correlation with echocardiogram derived ejection fraction. Inability to exercise by itself can lead to increased cardiovascular event risks. Consider cardiology consultation and or follow-up if clinically indicated. I am available for cardiology evaluation and consultation if requested by the assembler leather goods, unless patient already has a telecom coordinator. DEE
[2017-08-01] MEDS ORDERED: REGADENOSON INJ 0.4 MG/5 ML DISP.SYRIN IV ONE (14:25)
[2017-08-01] MEDS ORDERED: AMINOPHYLLINE INJ/PF 250 MG/10 ML SDV IV ONE (14:25)
--- NOTE | 2017-08-01 14:33 | PDOC PROGRESS REPORT ---
Subjective Progress Note for:: 08/01/17 Subjective:: The patient is a 52-year-old female with past medical history of hypertension, chronic hip pain, pernicious anemia, who was admitted on 07/31/17 for hypertensive urgency. The patient is seen on morning rounds. She is found sitting upright to the minor having just returned to her room after her Cardiolite stress test. She states that she did not has pain during the stress test. Her only complaint at this time is a posterior headache that has been ongoing for 3 days described as dull and throbbing. No red flags. She states that typically she takes Tylenol for her pain. She is offered Tylenol or Motrin which she declines at this time. She is hopeful for good test results and a quick discharge to home possibly this afternoon. No other questions or concerns at this time. Reason For Visit: HYPERTENSIVE URGENCY Physical Exam Vital Signs: Temp Pulse Resp BP Pulse Ox 98.5 F 70 20 157/100 H 100 08/01/17 08:29 08/01/17 08:29 08/01/17 08:29 08/01/17 08:29 08/01/17 08:29 Intake & Output 07/31/17 08/01/17 08/02/17 06:59 06:59 06:59 Weight 98.5 kg General appearance: PRESENT: no acute distress, cooperative, obese, well- developed, well-nourished Head exam: PRESENT: atraumatic, normocephalic Eye exam: PRESENT: conjunctiva pink, EOMI, PERRLA. ABSENT: scleral icterus Ear exam: PRESENT: normal external ear exam Mouth exam: PRESENT: moist, tongue midline Neck exam: ABSENT: carotid bruit, JVD, lymphadenopathy, thyromegaly Respiratory exam: PRESENT: clear to auscultation geri, symmetrical, unlabored. ABSENT: rales, rhonchi, wheezes Cardiovascular exam: PRESENT: RRR, +S1, +S2. ABSENT: diastolic murmur, rubs, systolic murmur Pulses: PRESENT: normal dorsalis pedis pul Vascular exam: PRESENT: normal capillary refill GI/Abdominal exam: PRESENT: normal bowel sounds, soft. ABSENT: distended, guarding, mass, organolmegaly, rebound, tenderness Rectal exam: PRESENT: deferred Extremities exam: PRESENT: full ROM. ABSENT: calf tenderness, clubbing, pedal edema Neurological exam: PRESENT: alert, awake, oriented to person, oriented to place , oriented to time, oriented to situation, CN II-XII grossly intact. ABSENT: motor sensory deficit Psychiatric exam: PRESENT: appropriate affect, normal mood. ABSENT: homicidal ideation, suicidal ideation Skin exam: PRESENT: dry, intact, warm. ABSENT: cyanosis, rash Results Laboratory Results: 08/01/17 06:05 08/01/17 06:05 08/01/17 08/01/17 06:05 06:05 WBC 4.4 RBC 4.27 Hgb 13.8 Hct 39.9 MCV 94 MCH 32.3 MCHC 34.6 RDW 14.8 H Plt Count 230 Sodium 143.4 Potassium 3.7 Chloride 108 H Carbon Dioxide 22 Anion Gap 13 BUN 10 Creatinine 0.89 Est GFR ( Amer) > 60 Est GFR (Non-Af Amer) > 60 Glucose 84 Calcium 9.7 Triglycerides 117 Cholesterol 199.47 LDL Cholesterol Direct 118 H VLDL Cholesterol 23.0 HDL Cholesterol 58 07/31/17 17:23 Troponin I < 0.012 Impressions: Chest X-Ray 07/31/17 12:51 IMPRESSION: NO ACUTE RADIOGRAPHIC FINDING IN THE CHEST. Assessment & Plan - Diagnosis (1) Hypertensive urgency Is this a current diagnosis for this admission?: Yes Plan: The patient was admitted with hypertensive urgency; blood pressures on admission were 201/1 2 1. They are slightly improved today to 157/100. Labs and EKGs are unremarkable. Have asked nursing to obtain manual blood pressures only. Cardiac diet. Cardiology has been consulted; appreciate their evaluation recommendations. The patient is ordered Vasotec 2.5 mg IV every 4 hours as needed Have resumed her home dose Norvasc milligrams daily today. Have also initiated losartan 25 mg p.o. daily per cardiology cheese recommendations for an ANDERSON/ARB. If blood pressure remains significantly elevated; consider renal ultrasound. (2) Chest tightness Is this a current diagnosis for this admission?: Yes Plan: Resolved. The patient denies continued chest tightness. Troponins are negative. EKGs without abnormal findings; no ST segment elevation or depression. Nuclear stress test was completed today demonstrated a normal EKG and hemodynamic response to Lexiscan. Echocardiogram is pending. Radiology has been consulted; appreciate their evaluation recommendations. (3) Chronic pain Qualifiers: Chronic pain type: other chronic pain Qualified Code(s): G89.29 - Other chronic pain Is this a current diagnosis for this admission?: Yes Plan: Today the patient's home Percocet regimen. Encourage mobility. (4) Family history of heart disease Is this a current diagnosis for this admission?: Yes Plan: Strong family history of coronary artery disease and hypertension. Hemoglobin A1c is 5.2% LDL 118, HDL 58, triglycerides 117, total cholesterol 199. The patient is started on low-dose atorvastatin daily aspirin. (5) Obesity Qualifiers: Obesity type: unspecified obesity type Serious obesity comorbidity presence : unspecified whether serious comorbidity present Body mass index: unspecified BMI Is this a current diagnosis for this admission?: Yes Plan: We will ask the registered dietitian to meet with the patient. - Time Time Spent with patient: 25-34 minutes Medications reviewed and adjusted accordingly: Yes Anticipated discharge: Home
[2017-08-01] MEDS ORDERED: ATORVASTATIN CALCIUM 10 MG TABLET PO SCH (22:00)
[2017-08-02 04:04] VITALS: BP 118/80
[2017-08-02 08:33] LABS: ANION GAP 14 (5-19); BLOOD UREA NITROGEN 11 mg/dL (7-20); CALCIUM 9.8 mg/dL (8.4-10.2); CARBON DIOXIDE 21 mmol/L (22-30); CHLORIDE 108 mmol/L (98-107); GLUCOSE 88 mg/dL (75-110); POTASSIUM 4.1 mmol/L (3.6-5.0); SODIUM 143.2 mmol/L (137-145)
--- NOTE | 2017-08-02 09:20 | Physician Advisory Note ---
Physician Advisor ProgressNote .: [facility], I have reviewed the medical record for this patient. Physician Advisor Statement: Please consider documenting, if you agree: 1. "chest tightness, suspect most likely due to " (cardiac ischemia? HTN? gastritis? ...) - If this was felt to be due to the HTN, then please consider specifying "HTN -minnie emergency causing chest tightness" ("HTN-minnie urgency" doesn't cause s/s; "HTN-minnie emergency" does) Thanks! CK
[2017-08-02] MEDS ORDERED: METOPROLOL SUCCINATE 25 MG TAB.SR.24H PO SCH (10:00)
[2017-08-02] MEDS ORDERED: AMLODIPINE BESYLATE 5 MG TABLET PO SCH (10:00)
[2017-08-02] MEDS ORDERED: LOSARTAN POTASSIUM 25 MG TABLET PO SCH (10:00)
[2017-08-02] MEDS ORDERED: LOSARTAN POTASSIUM 50 MG TABLET PO SCH (10:00)
[2017-08-02] MEDS ORDERED: OMEGA-3 ACID ETHYL ESTERS 1 GM CAPSULE PO SCH (10:00)
[2017-08-02] MEDS ORDERED: ASPIRIN 81 MG TABLET, CHEWABLE PO SCH (10:00)
[2017-08-02] MEDS: OXYCODONE-ACETAMINOPHEN 5-325 MG TABLET PO PRN (10:38)
[2017-08-02] MEDS: ENOXAPARIN SODIUM INJ 40 MG/0.4 ML DISP.SYRIN SUBCUT SCH (10:42)
--- NOTE | 2017-08-02 12:19 | XCELERA REPORT ---
[address] [address] Transthoracic Echocardiogram Report Name: LISA CARPENTER Age: 52 yrs Gender: Female : 1965 Patient Status: Inpatient Patient Location: [address] [place] [address] Study Date: 08/02/2017 11:22 AM Height: 62 in Weight: 217 lb BSA: 2.0 m2 Procedure: A complete two-dimensional transthoracic echocardiogram was performed (2D, M-mode, spectral and color flow Doppler). The study was technically adequate with some images being suboptimal in quality. Reason For Study: Hypertensive urgency Ordering Physician: ELIE MOSLEY Performed By: More Lew Interpretation Summary The left ventricular ejection fraction is normal. There is mild concentric left ventricular hypertrophy. Doppler measurements suggest pseudonormalized left ventricular relaxation, which is associated with grade II/IV or mild to moderate diastolic dysfunction The left ventricle is grossly normal size. No regional wall motion abnormalities noted. The right atrium is normal in size The left atrium is mildly dilated. The right ventricular systolic function is normal. There is a trace amount of mitral regurgitation There is no mitral valve stenosis. No aortic regurgitation is present. There is no aortic valve stenosis There is a trace or physiologic amount of tricuspid regurgitation Tricuspid regurgitation jet envelope not well defined to measure RV systolic pressure accurately. The aortic root is not well visualized but is probably normal size. The inferior vena cava appeared normal and decreased > 50% with respiration (RAP 5-10 mmHg) There is no pericardial effusion. MMode/2D Measurements & Calculations RVDd: 2.3 cm LVIDd: 4.9 cmFS: 29.2 % Ao root diam: 2.8 cm IVSd: 1.0 cm LVIDs: 3.4 cmEDV(Teich): 111.2 ml LVPWd: 1.0 cmESV(Teich): 49.0 ml Ao root area: 6.0 cm2 EF(Teich): 55.9 % LA dimension: 3.4 cm LVOT diam: 2.0 cm LVOT area: 3.2 cm2 Doppler Measurements & Calculations MV E max taylor: MV P1/2t max taylor: Ao V2 max: LV V1 max P.2 cm/sec 71.0 cm/sec 149.3 cm/sec 4.5 mmHg MV A max taylor: MV P1/2t: 68.9 msec Ao max PG: LV V1 max: 67.9 cm/sec MVA(P1/2t): 3.2 cm2 8.9 mmHg 106.1 cm/sec MV E/A: 1.0 MV dec slope: ADRIENNE(V,D): 2.3 cm2 301.6 cm/sec2 PA V2 max: TR max taylor: 74.0 cm/sec 175.5 cm/sec PA max PG: TR max P.3 mmHg 2.2 mmHg Left Ventricle The left ventricle is grossly normal size. There is mild concentric left ventricular hypertrophy. The left ventricular ejection fraction is normal. Doppler measurements suggest pseudonormalized left ventricular relaxation, which is associated with grade II/IV or mild to moderate diastolic dysfunction. No regional wall motion abnormalities noted. Right Ventricle The right ventricle is grossly normal size. There is normal right ventricular wall thickness. The right ventricular systolic function is normal. Atria The right atrium is normal in size. The left atrium is mildly dilated. Interarterial septum not well visualized and not well dopplered. Cannot comment on ASD/PFO presence. Mitral Valve The mitral valve is grossly normal. There is no mitral valve stenosis. There is a trace amount of mitral regurgitation. Aortic Valve The aortic valve is grossly normal. There is no aortic valve stenosis. No aortic regurgitation is present. Tricuspid Valve The tricuspid valve is not well visualized, but is grossly normal. There is no tricuspid stenosis. There is a trace or physiologic amount of tricuspid regurgitation. Tricuspid regurgitation jet envelope not well defined to measure RV systolic pressure accurately. Pulmonic Valve The pulmonic valve is not well visualized. Great Vessels The aortic root is not well visualized but is probably normal size. The inferior vena cava appeared normal and decreased > 50% with respiration (RAP 5-10 mmHg). Effusions There is no pericardial effusion. : ELIE MOSLEY > Elie Mosley
--- NOTE | 2017-08-02 13:38 | DISCHARGE SUMMARY E ---
Discharge Summary NAME: LISA CARPENTER : 1965 AGE: 52Y ADMITTED: 07/31/2017 DISCHARGED: 08/02/2017 CODE STATUS: FULL CODE. PRIMARY CARE PROVIDER: Dr. Abbott CONDITION: Good. DISCHARGE DIAGNOSES: 1. Hypertensive urgency. 2. Chest pain most likely secondary to #1 which is resolved. 3. Chronic pain. 4. Hyperlipidemia. 5. Chronic obstructive pulmonary disease. DISCHARGE MEDICATIONS: 1. ProAir HFA 1-2 puffs inhalation q.4 hours p.r.n., 1 inhaler with 0 refills. 2. Norvasc 5 mg p.o. daily, 30 tablets with 0 refills. 3. Aspirin 81 mg p.o. daily, 30 tablets with 1 refill. 4. Lipitor 10 mg p.o. at hour of sleep, 30 tablets with 1 refill. 5. Cozaar 100 mg p.o. daily, 30 tablets with 1 refill. 6. Toprol XL 25 mg p.o. daily, 30 tablets with 1 refill. DIET: Heart healthy. ACTIVITY: As tolerated. DIAGNOSTICS: Lab values are as follow: Hematology obtained on 08/01/2017: WBCs are 4.4, hemoglobin is 13.8, hematocrit is 39.9, platelet count is 230,000. Chemistry obtained on 08/02/2017: Sodium is 143, potassium 4.1, chloride is 108, carbon dioxide 21, BUN 11, creatinine is 0.84, glucose 88, A1c is 5.2, calcium is 9.8, magnesium is 2.0, bilirubin 0.4, AST 15, ALT is 15, alk phos 56, troponin is 0.012, total protein 8.1, albumin 4.7. Triglycerides are 117, cholesterol 199, LDL 118, VLDL is 23, HDL is 58. Chest x-ray obtained on 07/31/2017 reveals no acute radiographic finding of the chest. Cardiolite stress test obtained on 07/31/2017 reveals a normal EKG and hemodynamic response to Lexiscan stress test. EKG obtained on 07/31/2017 reveals sinus rhythm. PHYSICAL EXAMINATION: GENERAL: On examination, the patient is a well-developed, well-nourished, 52-year-old -[place] female who is awake and alert. She is oriented to person, place, time, and situation. She is verbal, conversational, and does not appear to be in any acute distress. VITAL SIGNS: Temperature 98.6, pulse 63, respirations 16, blood pressure 118/80, oxygen saturation is 98% on room air. SKIN: Warm and dry. No rash. She is not diaphoretic. HEENT: Pupils are reactive. There is no evidence of JVP. Mucous membranes are moist. CARDIOVASCULAR: Heart is in sinus rhythm and regular. CHEST: Symmetrical and unlabored. ABDOMEN: Nondistended. EXTREMITIES: No edema. PSYCHIATRIC: Appropriate affect. Pleasant mood. HISTORY OF PRESENT ILLNESS: The patient is a 52-year-old -[place] female with a past medical history of hypertension. The patient presented to the emergency department with a chief complaint of chest tightness and lethargy. According to the patient, she had poorly controlled blood pressure for the past 9 months. The patient has not seen her primary care provider for quite awhile. The patient was started on Norvasc last time she saw her primary and had improvement of her blood pressure. The patient, however, states that over the past 2-3 days she has had a generalized lethargy, headache, and the patient has not filled her medicines since November. The patient gives a description of a floating sensation as well occasional chest tightness but no overt pain, diaphoresis, palpitations, no sick contacts, no fever, chills, or abdominal. The patient denies any recent stress. She does admit to smoking and a strong family history of coronary artery disease and hypertension, and the patient was referred to the hospitalist for observation and management. HOSPITAL COURSE: Patient was observed in continuous telemetry unit. Serial cardiac enzymes were obtained, all of which were non-suggestive. The patient had no EKG changes and no evidence on the derrick engineer. The patient underwent a Lexiscan stress test which was found to be normal. The patient's blood pressure medications were resumed that she would have been on at home. Additionally, Losartan was added with significant improvement of her symptoms. The patient's headache completely resolved, and the patient is eager for discharge. DISCHARGE PLANNING: The patient is advised to follow with her primary care provider within 1-2 weeks for hospital followup. Follow-up for outpatient echocardiogram. Time spent on this followup including assessment, plan, physical examination, patient education, review of records, and specialty collaboration is 25 minutes. DICTATING PHYSICIAN: KANDACE PEREZ NP [id number] PHY#: [id number] ID: [id number] JOB#: [id number] ACCT: [id number] cc:Broderick PEREZ NP > MTDD
--- NOTE | 2017-08-02 20:09 | PDOC PROGRESS REPORT ---
Subjective Progress Note for:: 08/01/17 Subjective:: Patient seems to be doing better with gradual improvement. Pt is denying any chest arm or neck discomfort. Patient denying any PND, orthopnea. Patient denied any sustained palpitations, dizziness, syncope, near syncope. Patient denying any fever chills. Patient denying any other significant discomfort. Patient is maintaining sinus rhythm. Nuclear stress test procedure was explained to the patient in detail. Risks benefits were discussed and informed consent was obtained. Alternatives were discussed. Patient informed that based on risk factors, physical exam, lab data findings and symptoms there is at least intermediate probability of underlying CAD. Nuclear stress test procedure was therefore scheduled. Review of systems: Rest review of systems negative. Medications: Medications have been reviewed. Reason For Visit: HYPERTENSIVE URGENCY Physical Exam Vital Signs: Temp Pulse Resp BP Pulse Ox 98.3 F 79 20 138/86 H 93 08/01/17 15:43 08/01/17 19:00 08/01/17 15:43 08/01/17 16:00 08/01/17 15:43 Intake & Output 07/31/17 08/01/17 08/02/17 06:59 06:59 06:59 Intake Total 460 Balance 460 Weight 98.5 kg Exam: GENERAL: well-nourished and in no acute distress. Alert and oriented x3 HEAD: Atraumatic, normocephalic. EYES: Pupils equal round and reactive to light, extraocular movements intact, sclera anicteric, conjunctiva are normal. ENT: TMs normal, nares patent, oropharynx clear without exudates. Moist mucous membranes. No oral ulcerations or bleeding gums noted NECK: supple without lymphadenopathy. Trachea is central. No cervical or axillary lymphadenopathy noted. Carotids are 2+, JVD WNL LUNGS: Respiration seems nonlabored, no significant accessory muscle action noted. Breath sounds clear to auscultation bilaterally and equal noted. No wheezes rales or rhonchi noted. No significant dullness noted on percussion. CHEST: Palpation of the chest wall shows no significant chest wall tenderness. No other significant abnormalities noted. 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 ABDOMEN: Soft, no significant tenderness appreciated, normoactive bowel sounds. No guarding, no rebound. No rigidity noted . No masses appreciated. EXTREMITIES: Pedal pulses are 1-2+, no calf tenderness noted. No clubbing or cyanosis.trace to 1+ pedal edema noted NEUROLOGICAL: Focused neurological exam showed no significant neurologic deficit. Normal speech, no focal weakness appreciated. PSYCH: Normal mood, normal affect. Judgment and insight within normal limits. SKIN: No significant ecchymosis, rash, ulcerations or signs of pruritus noted. MUSCULOSKELETAL EXAM: No significant joint swelling noted. Results Laboratory Results: 08/01/17 06:05 08/01/17 06:05 08/01/17 08/01/17 06:05 06:05 WBC 4.4 RBC 4.27 Hgb 13.8 Hct 39.9 MCV 94 MCH 32.3 MCHC 34.6 RDW 14.8 H Plt Count 230 Sodium 143.4 Potassium 3.7 Chloride 108 H Carbon Dioxide 22 Anion Gap 13 BUN 10 Creatinine 0.89 Est GFR ( Amer) > 60 Est GFR (Non-Af Amer) > 60 Glucose 84 Calcium 9.7 Triglycerides 117 Cholesterol 199.47 LDL Cholesterol Direct 118 H VLDL Cholesterol 23.0 HDL Cholesterol 58 07/31/17 17:23 Troponin I < 0.012 EKG Comments: Telemetry strip shows sinus rhythm without any sustained tacky or bradycardia arrhythmias. Impressions: Chest X-Ray 07/31/17 12:51 IMPRESSION: NO ACUTE RADIOGRAPHIC FINDING IN THE CHEST. Assessment & Plan - Diagnosis (1) Chest tightness Is this a current diagnosis for this admission?: Yes (2) Hypertensive urgency Is this a current diagnosis for this admission?: Yes (3) Obesity Qualifiers: Obesity type: unspecified obesity type Serious obesity comorbidity presence : unspecified whether serious comorbidity present Body mass index: unspecified BMI Is this a current diagnosis for this admission?: Yes - Notes Notes: Chest pain: Patient claims chest pain is resolved. This was evaluated with a nuclear stress test. Nuclear stress test was negative for any significant areas of ischemia or any significant areas of scar. The nuclear stress test is felt to be relatively low risk. Patient informed that occasionally single- vessel disease and balanced ischemia could be missed. Patient advised aggressive risk factor modification and medical therapy. Patient informed that further evaluation may become necessary if symptoms worsens or there is a development of new symptoms indicative of angina or angina equivalent symptom. Hypertensive urgency: Currently blood pressure coming under better control. A 2D echo is still pending. Obesity: Patient has been encouraged in weight loss. - Time Time with patient: Greater than 35 minutes - Patient was seen multiple times. Total time exceeds 40 minutes. In the morning nuclear stress test procedure, risks benefits, alternatives were discussed. Patient seen during the stress test. Patient also seen after stress test when results were discussed with the patient in detail. Patient's questions were answered. Nuclear stress test results were discussed with the patient. Patient was informed that no definitive evidence of pharmacologic stress-induced ischemia noted. No definite fixed defects were noted. Patient informed that occasionally significant single vessel disease or balanced ischemia could be missed. However based on the current study results, would recommend aggressive risk factor modification and medical therapy. It may also be worthwhile to consider evaluation or empiric management of other causes of chest pain. Should no other cause be found and if persistent in having chest pain, then cardiac catheterization should be considered. Right now, recommendations are for aggressive risk factor modification and medical management. CODE STATUS was discussed, patient remains full code. Surrogate decision-maker unchanged. Multiple medical problems were addressed. More than 50% of the time spent coordinating care, discussing management plans with involved caregivers. Management plans discussed with involved personnels. Medical decision making was of moderate to high complexity, patient's has multiple comorbidities. Medications reviewed and adjusted accordingly: Yes
--- NOTE | 2017-08-02 20:11 | PDOC PROGRESS REPORT ---
Subjective Progress Note for:: 08/02/17 Subjective:: Patient was seen in the morning. Patient seems to be doing better with gradual improvement. Pt is denying any chest arm or neck discomfort. Patient denying any PND, orthopnea. Patient denied any sustained palpitations, dizziness, syncope, near syncope. Patient denying any fever chills. Patient denying any other significant discomfort. Patient is maintaining sinus rhythm. 2D echo pending at the time of dictation but later on was reviewed and was noted to have normal LVEF without any significant valvular abnormalities. Review of systems: Rest review of systems negative. Medications: Medications have been reviewed. Reason For Visit: HYPERTENSIVE URGENCY Physical Exam Vital Signs: Temp Pulse Resp BP Pulse Ox 98.6 F 63 16 118/80 98 08/02/17 11:34 08/02/17 11:34 08/02/17 11:34 08/02/17 11:34 08/02/17 11:34 Intake & Output 08/01/17 08/02/17 08/03/17 06:59 06:59 06:59 Intake Total 1300 Output Total 600 Balance 700 Weight 98.5 kg 102.5 kg Exam: GENERAL: well-nourished and in no acute distress. Alert and oriented x3 HEAD: Atraumatic, normocephalic. EYES: Pupils equal round and reactive to light, extraocular movements intact, sclera anicteric, conjunctiva are normal. ENT: TMs normal, nares patent, oropharynx clear without exudates. Moist mucous membranes. No oral ulcerations or bleeding gums noted NECK: supple without lymphadenopathy. Trachea is central. No cervical or axillary lymphadenopathy noted. Carotids are 2+, JVD WNL LUNGS: Respiration seems nonlabored, no significant accessory muscle action noted. Breath sounds clear to auscultation bilaterally and equal noted. No wheezes rales or rhonchi noted. No significant dullness noted on percussion. CHEST: Palpation of the chest wall shows no significant chest wall tenderness. No other significant abnormalities noted. 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 ABDOMEN: Soft, no significant tenderness appreciated, normoactive bowel sounds. No guarding, no rebound. No rigidity noted . No masses appreciated. EXTREMITIES: Pedal pulses are 1-2+, no calf tenderness noted. No clubbing or cyanosis. Negative pedal edema noted NEUROLOGICAL: Focused neurological exam showed no significant neurologic deficit. Normal speech, no focal weakness appreciated. PSYCH: Normal mood, normal affect. Judgment and insight within normal limits. SKIN: No significant ecchymosis, rash, ulcerations or signs of pruritus noted. MUSCULOSKELETAL EXAM: No significant joint swelling noted. Results Laboratory Results: 08/01/17 06:05 08/02/17 07:36 08/02/17 07:36 Sodium 143.2 Potassium 4.1 Chloride 108 H Carbon Dioxide 21 L Anion Gap 14 BUN 11 Creatinine 0.84 Est GFR ( Amer) > 60 Est GFR (Non-Af Amer) > 60 Glucose 88 Calcium 9.8 07/31/17 17:23 Troponin I < 0.012 EKG Comments: Telemetry strip shows sinus rhythm without any sustained tacky or bradycardia arrhythmias. Impressions: Chest X-Ray 07/31/17 12:51 IMPRESSION: NO ACUTE RADIOGRAPHIC FINDING IN THE CHEST. Assessment & Plan - Diagnosis (1) Chest tightness Is this a current diagnosis for this admission?: Yes (2) Hypertensive urgency Is this a current diagnosis for this admission?: Yes (3) Obesity Qualifiers: Obesity type: unspecified obesity type Serious obesity comorbidity presence : unspecified whether serious comorbidity present Body mass index: unspecified BMI Is this a current diagnosis for this admission?: Yes - Notes Notes: Patient noted to be stable from cardiac standpoint. Nuclear stress test results were reviewed. 2D echo results reviewed. Patient okay for discharge from cardiac standpoint. Patient can follow-up with me if he wishes. Patient advised to monitor blood pressure. Patient will benefit from weight loss and possible exclusion of sleep apnea syndrome as cause of severe hypertension. - Time Time with patient: 15-25 minutes - CODE STATUS was discussed, patient remains full code. Surrogate decision-maker unchanged. Multiple medical problems were addressed. More than 50% of the time spent coordinating care, discussing management plans with involved caregivers. Management plans discussed with involved personnels. Medical decision making was of moderate to high complexity , patient's has multiple comorbidities. Medications reviewed and adjusted accordingly: Yes
== END 2017-08-02 12:20 | disposition home or self-care (01) ==
LOC: ER 12:06 → EH 15:53 → 4S 08-01 04:35
PROVIDERS: ADMIT Emergency Medicine; ATTEND Emergency Medicine
DX: I16.0 Hypertensive urgency (principal); R07.89 Other chest pain; G89.29 Other chronic pain; E78.5 Hyperlipidemia, unspecified; J44.9 Chronic obstructive pulmonary disease, unspecified; R53.83 Other fatigue; F17.200 Nicotine dependence, unspecified, uncomplicated; E66.9 Obesity, unspecified; Z68.41 Body mass index [BMI] 40.0-44.9, adult; M25.559 Pain in unspecified hip; Z91.19 Patient's noncompliance with other medical treatment and regimen; Z82.49 Family history of ischemic heart disease and other diseases of the circulatory system
CPT/HCPCS: 93005; 99291; 96372; 96374; 36415 ×3; 83735; 85025; 85027; 80048 ×2; 80053; 84484; 83036; 80061; 93306; 93017; 71045; 78452; 93010; A9500; J2785; J0360; J1650 ×2; J3490; J0280; Q9969

== ENCOUNTER 2018-09-12 17:23 | Emergency (ER) | payer SELFPAY ==
[2018-09-12 17:28] VITALS: BP 153/99
--- NOTE | 2018-09-12 17:59 | RADIOLOGY REPORT (SQ) ---
EXAM DESCRIPTION: WRIST RIGHT 3 VIEWS COMPLETED DATE/TIME: 09/12/2018 5:48 pm REASON FOR STUDY: r wrist pain COMPARISON: None. NUMBER OF VIEWS: Three views. TECHNIQUE: AP, lateral, and oblique radiographic images acquired of the right wrist. LIMITATIONS: None. FINDINGS: MINERALIZATION: Normal. BONES: No acute fracture or dislocation. No worrisome bone lesions. Normal alignment. No significant arthritic changes. JOINTS AND SOFT TISSUES: No swelling. No calcifications. No foreign bodies. OTHER: No other significant finding. IMPRESSION: NEGATIVE STUDY OF THE RIGHT WRIST. NO ACUTE POST-TRAUMATIC FINDINGS. NO EXPLANATION FOR PAIN. TECHNICAL DOCUMENTATION: JOB ID: [id number] [employer]- All Rights Reserved Reading location - IP/workstation name: [email or web address]
[2018-09-12] MEDS ORDERED: PREDNISONE 20 MG TABLET PO ONE (18:15)
--- NOTE | 2018-09-12 18:19 | ER Document Report ---
HPI - HPI Patient complains to provider of: Right wrist pain Time Seen by Provider: 09/12/18 17:38 Onset: Other - 1 month Onset/Duration: Waxing and waning Quality of pain: Sharp Pain Level: 5 Context: Patient presents complaining of right wrist pain off and on for the past month. Patient denies any injury. Patient is right-hand dominant. Patient denies any fever. Patient complains of pain with any movement. Associated Symptoms: Other - Right wrist pain. denies: Fever Exacerbated by: Movement Relieved by: Remaining still Similar symptoms previously: No Recently seen / treated by doctor: No - ROS ROS below otherwise negative: Yes Systems Reviewed and Negative: Yes All other systems reviewed and negative - CONSTITUTIONAL Constitutional: DENIES: Fever, Chills - GASTROINTESTINAL Gastrointestinal: DENIES: Nausea - REPRODUCTIVE Reproductive: DENIES: : - MUSCULOSKELETAL Musculoskeletal: REPORTS: Extremity pain. 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 Family History: Arthritis, CAD, CVA, DM, Malignancy Patient has suicidal ideation: No Patient has homicidal ideation: No - Past Medical History Cardiac Medical History: Reports: Hx Hypertension Pulmonary Medical History: Reports: Hx Asthma, Hx COPD Renal/ Medical History: Denies: Hx Peritoneal Dialysis GI Medical History: Reports: Hx Gastroesophageal Reflux Disease, Hx Colonoscopy, Hx Endoscopy Musculoskeletal Medical History: Reports Hx Musculoskeletal Trauma Traumatic Medical History: Reports: Hx Fractures - right arm Past Surgical History: Reports: Hx Dilation and Curettage, Hx Gynecologic Surgery - multi D n Cs, Hx Hysterectomy - Immunizations Immunizations up to date: Yes Hx Diphtheria, Pertussis, Tetanus Vaccination: Yes Vertical Provider Document - CONSTITUTIONAL Agree With Documented VS: Yes Exam Limitations: No Limitations General Appearance: WD/WN, No Apparent Distress - INFECTION CONTROL TRAVEL OUTSIDE OF THE [place] IN LAST 30 DAYS: No - HEENT HEENT: Atraumatic, Normocephalic - NECK Neck: Normal Inspection, Supple - RESPIRATORY Respiratory: Breath Sounds Normal, No Respiratory Distress - CARDIOVASCULAR Cardiovascular: Regular Rate, Regular Rhythm Pulses: Normal: Radial - BACK Back: Normal Inspection - MUSCULOSKELETAL/EXTREMETIES Musculoskeletal/Extremeties: MAEW, Tender - Tenderness over distal right radius. Tenderness increases with any ulnar deviation of right wrist or palpation of the wrist. Normal skin color and temperature. No edema, no deformity. Tenderness increases with range of motion. - NEURO Level of Consciousness: Awake, Alert, Appropriate Motor/Sensory: No Motor Deficit, No Sensory Deficit - DERM Integumentary: Warm, Dry, No Rash Course - Re-evaluation Re-evalutation: 09/12/18 Patient presents with symptoms worrisome for tendinitis. Normal skin color and temperature overlying joint with out any fever. No concern for septic arthritis. Patient denies any history of gout and resents without swelling or erythema at this time. Pain improved when held in a neutral position. Tenderness increases with any ulnar deviation of the wrist. Patient allergic to NSAIDs. We will treat with steroids for inflammation and short period of immobilization. Patient given number for orthopedic hand specialist for further evaluation. Good return precautions discussed. - Vital Signs Vital signs: Temp Pulse Resp BP Pulse Ox 98.1 F 81 14 153/99 H 95 09/12/18 17:26 09/12/18 17:26 09/12/18 17:26 09/12/18 17:26 09/12/18 17:26 - Diagnostic Test Radiology reviewed: Image reviewed, Reports reviewed Procedures - Immobilization Right Wrist Pre-Proc Neuro Vasc Exam: Normal Immobilizer type: Thumb spica Performed by: PCT Post-Proc Neuro Vasc Exam: Normal Alignment checked and good: Yes Discharge - Discharge Clinical Impression: Tendonitis, Right wrist pain Condition: Stable Disposition: HOME, SELF-CARE Instructions: Steroid Medication, Temporary Splint ([facility]), Tendonitis ([facility]) Additional Instructions: Return immediately for any new or worsening symptoms Followup with your primary care provider, call tomorrow to make a followup appointment Wear splint for the next 4 days and then remove. If still having pain follow-up with orthopedic hand surgeon for further evaluation. Prescriptions: Prednisone [Deltasone 20 mg Tablet] 2 tab PO DAILY 4 Days tablet Forms: Smoking Cessation Education Referrals: GAVINO CHRISTENSEN DO [Primary Care Provider] - Follow up as needed EDUARDA AGUILERA DO [ACTIVE STAFF] - Follow up in 3-5 days
== END 2018-09-12 18:54 | disposition home or self-care (01) ==
LOC: ER 17:23
PROC: 2W3GX1Z Immobilization of Right Thumb using Splint (ICD-10-PCS; principal; 2018-09-12)
DX: M25.531 Pain in right wrist (principal); M77.9 Enthesopathy, unspecified; F17.200 Nicotine dependence, unspecified, uncomplicated; I10 Essential (primary) hypertension; J44.9 Chronic obstructive pulmonary disease, unspecified
CPT/HCPCS: 99283; 73110; 29130; J7512

== ENCOUNTER 2019-05-25 06:20 | Emergency (ER) | payer SELFPAY ==
[2019-05-25] MEDS ORDERED: DIPHENHYDRAMINE HCL 50 MG/ML VIAL IV ONE (07:50)
[2019-05-25] MEDS ORDERED: PROCHLORPERAZINE EDISYLATE INJ 10 MG/2 ML VIAL IV ONE (07:50)
[2019-05-25] MEDS ORDERED: NORMAL SALINE 1000 ML 500 ML IV ONE (07:51)
[2019-05-25 08:02] LABS: ABSOLUTE MONOCYTES (AUTO) 0.4 10^3/uL (0.1-1.4); TOTAL CELLS COUNTED % (AUTO) 100 %
[2019-05-25 08:08] LABS: ABSOLUTE EOSINOPHILS # (AUTO) 0.1 10^3/uL (0.0-0.6); ABSOLUTE LYMPHOCYTES (AUTO) 1.7 10^3/uL (0.5-4.7); ABSOLUTE NEUT (AUTO) 2.1 10^3/uL (1.7-8.2); BASOPHILS % (AUTO) 0.2 % (0-2); EOSINOPHILS % (AUTO) 3.4 % (0-6); HEMATOCRIT 39.6 % (36.0-47.0); HEMOGLOBIN 13.5 g/dL (12.0-15.5); MEAN CORPUSCULAR HEMOGLOBIN 33.1 pg (27.0-33.4); MEAN CORPUSCULAR HGB CONC 34.2 g/dL (32.0-36.0); MEAN CORPUSCULAR VOLUME 97 fl (80-97); MONOCYTES % (AUTO) 10.1 % (3-13); PLATELET COUNT 251 10^3/uL (150-450); RED BLOOD COUNT 4.09 10^6/uL (3.72-5.28); RED CELL DISTRIBUTION WIDTH 14.9 % (11.5-14.0); SEGMENTED NEUTROPHILS % (AUTO) 48.3 % (42-78); WHITE BLOOD COUNT 4.4 10^3/uL (4.0-10.5)
[2019-05-25 08:17] LABS: ALKALINE PHOSPHATASE 55 U/L (38-126); ANION GAP 10 (5-19); ASPARTATE AMINO TRANSFERASE 20 U/L (14-36); BILIRUBIN,DIRECT 0.2 mg/dL (0.0-0.4); BILIRUBIN,TOTAL 0.5 mg/dL (0.2-1.3); BLOOD UREA NITROGEN 14 mg/dL (7-20); CALCIUM 9.2 mg/dL (8.4-10.2); CARBON DIOXIDE 27 mmol/L (22-30); CHLORIDE 104 mmol/L (98-107); GLUCOSE 87 mg/dL (75-110); POTASSIUM 3.8 mmol/L (3.6-5.0); TOTAL PROTEIN 7.5 g/dL (6.3-8.2)
--- NOTE | 2019-05-25 09:30 | ER Document Report ---
Entered by KANDACE CONWAY SCRIBE 05/25/19 0750 Acting as scribe for:ANNIE FERNANDES MD ED General - General Chief Complaint: S/S of Possible Stroke Stated Complaint: NAUSEA,PAIN IN RIGHT ARM Time Seen by Provider: 05/25/19 07:30 Primary Care Provider: GAVINO CHRISTENSEN DO [Primary Care Provider] - Follow up as needed Mode of Arrival: Ambulatory Information source: Patient, [facility] Records Notes: Patient is a 53-year-old female presents emergency department complaining of sharp arm pain, nausea, and headache that began suddenly this morning. Patient states that she began having a right-sided headache, and had sharp pain in her upper arm that radiates into her neck but not into her chest. She states that she is nauseous, firmly holding her upper arm/shoulder makes the nausea subside. Patient is currently prescribed Percocet 5mg QID, states she does not take it very often athough it is refilled as Percocet 5 mg number 120 tablets every month. Pertinent PMHx/PSHx: Hypertension, COPD, asthma Family history of heart disease, father had a stroke, and triple bypass surgery. Brother had a stroke. TRAVEL OUTSIDE OF THE [place] IN LAST 30 DAYS: No - Related Data Allergies/Adverse Reactions: aspirin [Aspirin] Allergy (Verified 09/12/18 17:23) ibuprofen [From Motrin] Allergy (Verified 09/12/18 17:23) Home Medications: amilodipine. another bp. oxycodone for chronic hip pain. albuterol Past Medical History - General Information source: Patient, [facility] Records - Social History Smoking Status: Current Some Day Smoker Cigarette use (# per day): Yes Chew tobacco use (# tins/day): No Frequency of alcohol use: None Drug Abuse: None Family History: Arthritis, CAD, CVA, DM, Malignancy Patient has suicidal ideation: No Patient has homicidal ideation: No - Past Medical History Cardiac Medical History: Reports: Hx Hypertension Pulmonary Medical History: Reports: Hx Asthma, Hx COPD GI Medical History: Reports: Hx Gastroesophageal Reflux Disease, Hx Colonoscopy, Hx Endoscopy Musculoskeletal Medical History: Reports Hx Musculoskeletal Trauma Traumatic Medical History: Reports: Hx Fractures - right arm Past Surgical History: Reports: Hx Dilation and Curettage, Hx Gynecologic Surgery - multi D n Cs, Hx Hysterectomy - Immunizations Immunizations up to date: Yes Hx Diphtheria, Pertussis, Tetanus Vaccination: Yes Review of Systems - Review of Systems Constitutional: No symptoms reported EENT: No symptoms reported Cardiovascular: No symptoms reported Respiratory: No symptoms reported Gastrointestinal: See HPI, Nausea Genitourinary: No symptoms reported Female Genitourinary: No symptoms reported Musculoskeletal: See HPI, Other - upper arm pain Skin: No symptoms reported Hematologic/Lymphatic: No symptoms reported Neurological/Psychological: See HPI, Headaches - Right sided -: Yes All other systems reviewed and negative Physical Exam - Vital signs Vitals: Temp Pulse Resp BP Pulse Ox 98.1 F 82 16 150/108 H 96 05/25/19 06:41 05/25/19 06:41 05/25/19 06:41 05/25/19 06:41 05/25/19 06:41 - Notes Notes: Physical Exam: General: Alert, appears well. HEENT: Normocephalic. Atraumatic. PERRL. Extraocular movements intact. Oropharynx clear. Neck: Right posterior cervical musculature tenderness to palpation. Trapezius musculature tenderness to palpation. Respiratory: No respiratory distress. Faint high-pitched expiratory wheezes. Cardiovascular: Regular rate and rhythm. Abdominal: Normal Inspection. Non-tender. No distension. Normal Bowel Sounds. Back: No gross abnormalities. Extremities: Moves all four extremities. Upper extremities: Normal inspection. Normal ROM. Lower extremities: Normal inspection. No edema. Normal ROM. Neurological: Normal cognition. AAOx4. Normal speech. Psychological: Normal affect. Normal Mood. Skin: Warm. Dry. Normal color. Course - Re-evaluation Re-evalutation: 05/25/19 09:44 The patient reports her headache is much better. She is feeling better. - Vital Signs Vital signs: Temp Pulse Resp BP Pulse Ox 98.1 F 64 18 124/75 97 05/25/19 06:41 05/25/19 07:48 05/25/19 08:40 05/25/19 08:01 05/25/19 08:40 - Laboratory Result Diagrams: 05/25/19 07:41 05/25/19 07:41 Laboratory results interpreted by me: 05/25/19 07:41 RDW 14.9 H - Diagnostic Test Radiology reviewed: Image reviewed, Reports reviewed - EKG Interpretation by Tx EKG shows normal: Sinus rhythm, [place], Intervals, QRS Complexes. abnormal: ST-T Waves - Borderline anterior T abnormalities Rate: Normal - 64 Rhythm: NSR When compared to previous EKG there are: No significant change Discharge - Discharge Clinical Impression: Right arm pain Tension type headache Qualifiers: Headache chronicity pattern: acute headache Intractability: not intractable Qualified Code(s): G44.209 - Tension-type headache, unspecified, not intractable Condition: Stable Disposition: HOME, SELF-CARE Additional Instructions: Tension Headache Your problem has been diagnosed as muscle tension headache. This very common type of headache occurs because of tightness in the muscles of the head and neck. The cause may be neck or jaw joint problems, but most commonly the cause is emotional stress. The headache may last hours or days. The treatment of uncomplicated tension headaches is rest and pain medication. Often, the newer antiinflammatory pain medications are prescribed, as these also decrease the irritability of the painful tissues. Muscle relaxers, cold packs, or warm packs are sometimes helpful. Anti-anxiety medication or narcotics are sometimes needed temporarily, but are best avoided in the long run. Your doctor has evaluated your headache problem, and finds no evidence of a serious health problem as a cause for the headache. If your headache becomes more severe, or if new symptoms develop (such as fever, stiff neck, vomiting, or decreasing alertness) you should be re-examined by the physician. Your evaluation today shows that the headache you are having is due to muscle tension in the neck and scalp muscles. There is no clear explanation for the arm pain you had earlier today. For today you should rest and drink plenty of fluids. Continue your regular medications. Follow-up with your primary care provider tomorrow if not feeling better. RETURN TO THE EMERGENCY ROOM IF ANY NEW OR WORSENING SYMPTOMS. Referrals: GAVINO CHRISTENSEN DO [Primary Care Provider] - Follow up as needed [place] Attestation: 05/25/19 09:46 I personally performed the services described in the documentation, reviewed and edited the documentation which was dictated to the scribe in my presence, and it accurately records my words and actions. I personally performed the services described in the documentation, reviewed and edited the documentation which was dictated to the scribe in my presence, and it accurately records my words and actions.
[2019-05-25 09:53] VITALS: BP 137/86
--- NOTE | 2019-05-25 10:31 | EKG REPORT ---
SEVERITY:- BORDERLINE ECG - SINUS RHYTHM BORDERLINE T ABNORMALITIES, ANTERIOR LEADS : Confirmed by: Benjamin Hauser MD 25-May-2019 10:30:50
== END 2019-05-25 09:57 | disposition home or self-care (01) ==
LOC: ER 06:20
DX: G44.209 Tension-type headache, unspecified, not intractable (principal); M79.601 Pain in right arm; R11.0 Nausea; Z79.899 Other long term (current) drug therapy; Z88.8 Allergy status to other drugs, medicaments and biological substances; F17.210 Nicotine dependence, cigarettes, uncomplicated; I10 Essential (primary) hypertension; J44.9 Chronic obstructive pulmonary disease, unspecified
CPT/HCPCS: 93005; 99283; 96361; 96374; 96375; 36415; 85025; 80053; 93010; J1200; J0780; J7030

== ENCOUNTER 2019-12-30 23:07 | Emergency (ER) | payer SELFPAY ==
[2019-12-30 23:20] VITALS: BP 149/89
[2019-12-31 00:02] LABS: APPEARANCE,URINE CLOUDY; BILIRUBIN,URINE NEGATIVE (NEGATIVE); COLOR,URINE YELLOW; GLUCOSE, URINE NEGATIVE (NEGATIVE); KETONES,URINE NEGATIVE (NEGATIVE); LEUKOCYTE ESTERASE,URINE LARGE (NEGATIVE); NITRITE,URINE POSITIVE (NEGATIVE); PROTEIN,URINE 100 mg/dL (NEGATIVE); URINE SPECIFIC GRAVITY 1.019; UROBILINOGEN,URINE NEGATIVE mg/dL (<2.0)
[2019-12-31] MEDS ORDERED: NITROFURANTOIN MONOHYD/M-CRYST 100 MG CAPSULE PO ONE (00:19)
--- NOTE | 2019-12-31 00:23 | ER Document Report ---
HPI - HPI Patient complains to provider of: Dysuria Time Seen by Provider: 12/30/19 23:37 Pain Level: 2 Context: 54-year-old female past medical history significant for hypertension, COPD presents to the emergency room complaining of dysuria with decreased urination for the past 2 days. States she noticed blood in her urine today. No fevers, no nausea, no vomiting, no flank pain. Has been taking Tylenol without relief. No history of recurrent UTIs. No history of kidney stones. Denies any vaginal discharge or vaginal bleeding. Denies abdominal pain. Associated Symptoms: None Exacerbated by: Denies Relieved by: Denies Similar symptoms previously: No Recently seen / treated by doctor: No - ROS Systems Reviewed and Negative: Yes All other systems reviewed and negative - CONSTITUTIONAL Constitutional: DENIES: Fever, Chills - GASTROINTESTINAL Gastrointestinal: DENIES: Abdominal Pain, Nausea, Patient vomiting - URINARY Urinary: REPORTS: Dysuria, Urgency Notes: Hematuria, decreased urination - REPRODUCTIVE Reproductive: DENIES: : - DERM Skin Color: Normal Skin Problems: None Past Medical History - General Information source: Patient - Social History Smoking Status: Current Every Day Smoker Frequency of alcohol use: Rare Drug Abuse: None Family History: Arthritis, CAD, CVA, DM, Malignancy Patient has homicidal ideation: No - Past Medical History Cardiac Medical History: Reports: Hx Hypertension Denies: Hx Coronary Artery Disease Pulmonary Medical History: Reports: Hx Asthma, Hx COPD Endocrine Medical History: Denies: Hx Diabetes Mellitus Type 1, Hx Diabetes Mellitus Type 2 Renal/ Medical History: Denies: Hx Peritoneal Dialysis GI Medical History: Reports: Hx Gastroesophageal Reflux Disease, Hx Colonoscopy, Hx Endoscopy Musculoskeletal Medical History: Reports Hx Musculoskeletal Trauma Traumatic Medical History: Reports: Hx Fractures - right arm Past Surgical History: Reports: Hx Dilation and Curettage, Hx Gynecologic Surgery - multi D n Cs, Hx Hysterectomy - Immunizations Immunizations up to date: Yes Hx Diphtheria, Pertussis, Tetanus Vaccination: Yes Vertical Provider Document - CONSTITUTIONAL Agree With Documented VS: Yes Exam Limitations: No Limitations General Appearance: Mild Distress - INFECTION CONTROL TRAVEL OUTSIDE OF THE [place] IN LAST 30 DAYS: No - HEENT HEENT: Atraumatic, Normocephalic - NECK Neck: Normal Inspection, Supple, Thyroid Normal - RESPIRATORY Respiratory: Breath Sounds Normal, No Respiratory Distress, Chest Non-Tender - CARDIOVASCULAR Cardiovascular: Regular Rate, Regular Rhythm, No Murmur - GI/ABDOMEN Gastrointestinal: Abdomen Soft, Abdomen Non-Tender. negative: Abdominal Guarding, Abdominal Rebound, No Organomegaly - BACK Back: Normal Inspection. negative: CVA Tenderness-Right, CVA Tenderness-Left - MUSCULOSKELETAL/EXTREMETIES Musculoskeletal/Extremeties: FROM - NEURO Level of Consciousness: Awake, Alert, Appropriate Motor/Sensory: No Motor Deficit, No Sensory Deficit - DERM Integumentary: Warm, Dry, No Rash Course - Re-evaluation Re-evalutation: 12/31/19 00:18 Reviewed urine results with patient. Counseled to drink plenty of water. Take antibiotics and Pyridium as prescribed. Counseled that the Pyridium can turn her urine and her eyes orange. She is to follow-up with her primary care physician if not improving in 2 to 3 days. Patient was given strict return to the emergency room guidelines. Return for any new or worsening symptoms. All questions were answered. Patient verbalized understanding and agrees with plan of care. - Vital Signs Vital signs: Temp Pulse Resp BP Pulse Ox 98.7 F 81 19 149/89 H 99 12/30/19 23:15 12/30/19 23:15 12/30/19 23:15 12/30/19 23:15 12/30/19 23:15 - Laboratory Laboratory results interpreted by me: 12/30/19 23:40 Urine Protein 100 H Urine Blood LARGE H Urine Nitrite POSITIVE H Ur Leukocyte Esterase LARGE H Discharge - Discharge Clinical Impression: UTI (urinary tract infection) Qualifiers: Urinary tract infection type: site unspecified Hematuria presence: with hematuria Qualified Code(s): N39.0 - Urinary tract infection, site not specified Condition: Stable Disposition: HOME, SELF-CARE Instructions: Nitrofurantoin ([facility]), Urinary Anesthetic Agent ([facility]), Urinary Tract Infection ([facility]) Additional Instructions: Drink plenty of fluids, your tears and your urine may turn orange. Take the antibiotics and Pyridium as prescribed. Follow-up with your primary care physician if not improving in 2 to 3 days. Return to the emergency room for any new or worsening symptoms. Prescriptions: Nitrofurantoin Monohyd/M-Cryst [Macrobid 100 mg Capsule] 100 mg PO BID #14 cap Phenazopyridine HCl [Pyridium 200 mg Tablet] 200 mg PO TID #6 tablet Referrals: GAVINO CHRISTENSEN DO [Primary Care Provider] - Follow up as needed
== END 2019-12-31 00:27 | disposition home or self-care (01) ==
LOC: ER 23:07
DX: N39.0 Urinary tract infection, site not specified (principal); R31.0 Gross hematuria; I10 Essential (primary) hypertension; J44.9 Chronic obstructive pulmonary disease, unspecified; F17.200 Nicotine dependence, unspecified, uncomplicated
CPT/HCPCS: 99283; 87086; 87088; 81001; J8499; 87186